=== PATIENT | female | born 1965 | race Caucasian/White ===

== ENCOUNTER 2018-05-25 10:21 | Emergency (ER) | payer OTHER ==
[~2018-05-25 10:21] MED LIST: AZIT-18 PO; BLOOD PRESSURE PO; CLON-327 PO; EST3 PO; GUAI480S48 PO; HYDR30CR10 TP; IBU800 PO; IPRA3AMP10 IH; KET10 PO; LOR05 PO; LORA-1455 PO; NO CURRENT MEDS; NO ROUTINE MEDS; PER PO; PRE20 PO; PRED-1 PO; PRED20TA6 PO; PROP80TA25 PO; SERT-173 PO; SERT25TA87 PO; [UNRECOGNIZED DRUG - OTHER]
[2018-05-25] MEDS ORDERED: NS(*) 0.9% 1000 ML BAG 1,000 ML IV ONE (10:34)
[2018-05-25] MEDS ORDERED: ONDANSETRON 4 MG/2 ML VIAL IVP ONE (10:35)
--- NOTE | 2018-05-25 10:50 | ER Report ---
History and Physical Time Seen By MD: 10:30 Hx. of Stated Complaint: Right upper quadrant abdominal pain and black stools. HPI/ROS CHIEF COMPLAINT: Abdominal pain HISTORY OF PRESENT ILLNESS: 52-year-old female comes emergency Department with 12 to 24-hour acute right upper quadrant abdominal pain and discomfort. Patient describes a sharp stabbing localized upper quadrant no loosening relieving factors comes and goes and is not associated with fluids and eat prior to patient does not have a gallbladder patient admits to 4-6 beers a day of alcohol consumption daily for many many years patient has mild nausea without actual vomiting and several episodes of loose stool patient denies any chest pain shortness of breath fever chills or additional complaints noted REVIEW OF SYSTEMS: Respiratory: No cough, no dyspnea. Cardiovascular: No chest pain, no palpitations. Gastrointestinal: Nausea without vomiting abdominal pain Musculoskeletal: No back pain. Remainder of the 14 system rev: Yes Allergies: Coded Allergies: No Known Drug Allergies (Verified , 05/25/18) Home Meds Active Scripts Hydrocortisone 2.5 % 30 GM CREAM (Hydrocortisone 2.5 % 30 GM CREAM) 2.5 % Cream.appl, 1 SOPHY TP BID for 30 Days, #1 TUBE 0 Refills Prov:MARY LINDSEY NPC 05/12/18 Clonidine Hcl (CLONIDINE HCL) 0.1 Mg Tablet, 0.1 MG PO BID PRN for prn, #8 TAB Take one tablet bid as needed for bp of 155/95. Prov:BRANDON CHEN [employer] 08/06/17 Reported Medications Propranolol Hcl (PROPRANOLOL HCL) 80 Mg Tablet, 80 MG PO QDAY 08/06/17 Estrogens Conjugated (PREMARIN) 0.3 Mg Tab, 0.3 MG PO QDAY, TAB 07/18/15 Sertraline Hcl (ZOLOFT) 100 Mg Tablet, 1 TAB PO QDAY, TAB 07/18/15 Ibuprofen (Motrin) 800 Mg Tab, 800 MG PO Q8H PRN for HEADACHES, #30 0 Refills take every 8 hours 07/02/11 Reviewed Nurses Notes: Yes Old Medical Records Reviewed: Yes Hx Smoking: Yes Smoking Status: Former Smoker Hx Substance Use Disorder: No Hx Alcohol Use: Yes (OCC) Constitutional Vital Sign - Last 24 Hours 05/25/18 10:27 Temp 98.2 Pulse 62 Resp 22 B/P (MAP) 190/89 Pulse Ox 92 Physical Exam General Appearance: The patient is alert, has no immediate need for airway protection and no current signs of toxicity. [ ] Eyes: Pupils equal and round no injection. Respiratory: Chest is non tender, lungs are clear to auscultation. Cardiac: regular rate and rhythm [ ] Gastrointestinal: Abdomen tenderness to right upper quadrant and epigastrium no left lower right lower no rebound guarding or masses and bowel sounds Musculoskeletal: Neck: Neck is supple and non tender. Extremities have full range of motion and are non tender. Skin: No rashes or lesions. [ ] DIFFERENTIAL DIAGNOSIS: After history and physical exam differential diagnosis was considered for pancreatitis alcoholic pancreatitis colitis Medical Decision Making Data Points Result Diagram: 05/25/18 1045 05/25/18 1045 Laboratory Hematology Test 05/25/18 10:45 05/25/18 11:07 Red Blood Count 4.04 M/uL (4.17-5.56) Mean Corpuscular Volume 94.7 fL (80.0-96.0) Mean Corpuscular Hemoglobin 31.9 pg (26.0-33.0) Mean Corpuscular Hemoglobin Concent 33.6 g/dL (32.0-36.0) Red Cell Distribution Width 15.2 % (11.5-14.5) Mean Platelet Volume 8.3 fL (7.2-11.1) Neutrophils (%) (Auto) 66.5 % (39.4-72.5) Lymphocytes (%) (Auto) 19.9 % (17.6-49.6) Monocytes (%) (Auto) 9.5 % (4.1-12.4) Eosinophils (%) (Auto) 3.0 % (0.4-6.7) Basophils (%) (Auto) 1.1 % (0.3-1.4) Nucleated RBC Relative Count (auto) 0.1 /100WBC Neutrophils # (Auto) 3.0 K/uL (2.0-7.4) Lymphocytes # (Auto) 0.9 K/uL (1.3-3.6) Monocytes # (Auto) 0.4 K/uL (0.3-1.0) Eosinophils # (Auto) 0.1 K/uL (0.0-0.5) Basophils # (Auto) 0.1 K/uL (0.0-0.1) Nucleated RBC Absolute Count (auto) 0.00 K/uL Prothrombin Time 12.6 seconds (12.0-14.4) Prothromb Time International Ratio 0.94 Activated Partial Thromboplast Time 26 seconds (23-35) Sodium Level 139 mmol/L (137-145) Potassium Level 4.1 mmol/L (3.5-5.0) Chloride Level 101 mmol/L (98-107) Carbon Dioxide Level 30 mmol/L (22-31) Blood Urea Nitrogen 14 mg/dl (7-18) Creatinine 0.90 mg/dl (0.52-1.04) Glomerular Filtration Rate Calc > 60.0 Random Glucose 106 mg/dl (75-110) Calcium Level 8.8 mg/dl (8.4-10.2) Total Bilirubin 0.7 mg/dl (0.2-1.3) Aspartate Amino Transf (AST/SGOT) 26 U/L (0-35) Alanine Aminotransferase (ALT/SGPT) 34 U/L (0-56) Alkaline Phosphatase 73 U/L (0-126) Total Protein 7.1 g/dl (6.3-8.2) Albumin 4.0 g/dl (3.5-5.0) Lipase 90 U/L (23-300) Serum Alcohol < 10 mg/dl Urine Color Yellow Urine Clarity Clear Urine pH 6.0 pH (4.8-9.5) Urine Specific [place] 1.005 Urine Protein Negative mg/dL (NEGATIVE) Urine Glucose (UA) Negative mg/dL (NEGATIVE) Urine Ketones Negative mg/dL (NEGATIVE) Urine Blood Negative (NEGATIVE) Urine Nitrite Negative (NEGATIVE) Urine Bilirubin Negative (NEGATIVE) Urine Urobilinogen Negative mg/dL (0.2-1.9) Urine Leukocyte Esterase Negative (NEGATIVE) Urine RBC None /HPF (0-2/HPF) Urine WBC 1 /HPF (0-5/HPF) Urine Squamous Epithelial Cells Moderate /LPF (</=FEW) Urine Bacteria Few /HPF (NONE-FEW) Urine Mucus Few /HPF (NONE-FEW) Chemistry Test 05/25/18 10:45 05/25/18 11:07 White Blood Count 4.6 k/uL (4.5-11.0) Red Blood Count 4.04 M/uL (4.17-5.56) Hemoglobin 12.9 g/dL (12.0-16.0) Hematocrit 38.2 % (34.0-47.0) Mean Corpuscular Volume 94.7 fL (80.0-96.0) Mean Corpuscular Hemoglobin 31.9 pg (26.0-33.0) Mean Corpuscular Hemoglobin Concent 33.6 g/dL (32.0-36.0) Red Cell Distribution Width 15.2 % (11.5-14.5) Platelet Count 120 K/uL (150-450) Mean Platelet Volume 8.3 fL (7.2-11.1) Neutrophils (%) (Auto) 66.5 % (39.4-72.5) Lymphocytes (%) (Auto) 19.9 % (17.6-49.6) Monocytes (%) (Auto) 9.5 % (4.1-12.4) Eosinophils (%) (Auto) 3.0 % (0.4-6.7) Basophils (%) (Auto) 1.1 % (0.3-1.4) Nucleated RBC Relative Count (auto) 0.1 /100WBC Neutrophils # (Auto) 3.0 K/uL (2.0-7.4) Lymphocytes # (Auto) 0.9 K/uL (1.3-3.6) Monocytes # (Auto) 0.4 K/uL (0.3-1.0) Eosinophils # (Auto) 0.1 K/uL (0.0-0.5) Basophils # (Auto) 0.1 K/uL (0.0-0.1) Nucleated RBC Absolute Count (auto) 0.00 K/uL Prothrombin Time 12.6 seconds (12.0-14.4) Prothromb Time International Ratio 0.94 Activated Partial Thromboplast Time 26 seconds (23-35) Glomerular Filtration Rate Calc > 60.0 Calcium Level 8.8 mg/dl (8.4-10.2) Total Bilirubin 0.7 mg/dl (0.2-1.3) Aspartate Amino Transf (AST/SGOT) 26 U/L (0-35) Alanine Aminotransferase (ALT/SGPT) 34 U/L (0-56) Alkaline Phosphatase 73 U/L (0-126) Total Protein 7.1 g/dl (6.3-8.2) Albumin 4.0 g/dl (3.5-5.0) Lipase 90 U/L (23-300) Serum Alcohol < 10 mg/dl Urine Color Yellow Urine Clarity Clear Urine pH 6.0 pH (4.8-9.5) Urine Specific [place] 1.005 Urine Protein Negative mg/dL (NEGATIVE) Urine Glucose (UA) Negative mg/dL (NEGATIVE) Urine Ketones Negative mg/dL (NEGATIVE) Urine Blood Negative (NEGATIVE) Urine Nitrite Negative (NEGATIVE) Urine Bilirubin Negative (NEGATIVE) Urine Urobilinogen Negative mg/dL (0.2-1.9) Urine Leukocyte Esterase Negative (NEGATIVE) Urine RBC None /HPF (0-2/HPF) Urine WBC 1 /HPF (0-5/HPF) Urine Squamous Epithelial Cells Moderate /LPF (</=FEW) Urine Bacteria Few /HPF (NONE-FEW) Urine Mucus Few /HPF (NONE-FEW) Coagulation Test 05/25/18 10:45 Prothrombin Time 12.6 seconds Prothromb Time International Ratio 0.94 Activated Partial Thromboplast Time 26 seconds Toxicology Test 05/25/18 10:45 Serum Alcohol < 10 mg/dl Urinalysis Test 05/25/18 11:07 Urine Color Yellow Urine Clarity Clear Urine pH 6.0 pH (4.8-9.5) Urine Specific [place] 1.005 Urine Protein Negative mg/dL (NEGATIVE) Urine Glucose (UA) Negative mg/dL (NEGATIVE) Urine Ketones Negative mg/dL (NEGATIVE) Urine Blood Negative (NEGATIVE) Urine Nitrite Negative (NEGATIVE) Urine Bilirubin Negative (NEGATIVE) Urine Urobilinogen Negative mg/dL (0.2-1.9) Urine Leukocyte Esterase Negative (NEGATIVE) Urine RBC None /HPF (0-2/HPF) Urine WBC 1 /HPF (0-5/HPF) Urine Squamous Epithelial Cells Moderate /LPF (</=FEW) Urine Bacteria Few /HPF (NONE-FEW) Urine Mucus Few /HPF (NONE-FEW) ED Course/Re-evaluation ED Course ED clinical course medical decision making this is a 52-year-old female upper quadrant pain started her gallbladder mild epigastric discomfort concerning for alcoholic pancreatitis versus colitis CT scan was performed normal lipase CT scan shows nothing focal or acute she did describe at the end of the encounter is some darkened stool rectal examination with gastric occult was performed results pending however the showed no darkened stool patient be discharged viral enteritis and follow up with primary care Decision to Disposition Date: May 25, 2018 Decision to Disposition Time: 13:29 Depart Departure Latest Vital Signs Vital Signs Date Time Temp Pulse Resp B/P (MAP) Pulse Ox O2 Delivery O2 Flow Rate FiO2 05/25/18 10:27 98.2 62 22 190/89 92 Impression: Primary Impression: Enteritis Condition: Improved Disposition: HOME OR SELF-CARE Referrals: BIN DUPONT (PCP) 5 Days Patient Instructions: Enteritis (DC) CHEO IGNACIO MD May 25, 2018 10:50
[2018-05-25 10:53] LABS: PLATELET COUNT, AUTOMATED 120 K/uL (150-450)
[2018-05-25 11:01] LABS: INR 0.94
[2018-05-25] MEDS ORDERED: IOPAMIDOL 76% 75 ML INFUS BTL 75 ML ONE (11:06)
--- NOTE | 2018-05-25 11:41 | RADIOLOGY IMAGING REPORT ---
FACILITY: [facility] - [place] PATIENT NAME: Viola Covarrubias : 1965 MR: [id number] V: [id number] EXAM DATE: ORDERING PHYSICIAN: CHEO IGNACIO TECHNOLOGIST: Location: [facility] [place] Patient: Viola Covarrubias : 1965 Visit/Account:[id number] Date of Sevice: 05/25/2018 Exam type: CHEST PA AND LAT History: pain Comparison: August 06, 2017. Findings: The lungs are free of acute effusions, infiltrates or edema. There is no evidence of a pneumothorax or pneumomediastinum. The cardiac silhouette is normal in size. The trachea is midline. IMPRESSION: 1. No acute cardiopulmonary process is seen Report Dictated By: Cat Sena MD at 05/25/2018 11:36 AM Report E-Signed By: Cat Sena MD at 05/25/2018 11:37 AM WSN:[id number]
--- NOTE | 2018-05-25 12:25 | RADIOLOGY IMAGING REPORT ---
FACILITY: [facility] - [place] PATIENT NAME: Viola Covarrubias : 1965 MR: [id number] V: [id number] EXAM DATE: ORDERING PHYSICIAN: CHEO IGNACIO TECHNOLOGIST: Location: [facility] - [place] Patient: Viola Covarrubias : 1965 Visit/Account:[id number] Date of Sevice: 05/25/2018 ABDOMEN/PELVIS WITH CONTRAST HISTORY: Epigastric pain TECHNIQUE: CT abdomen and pelvis with intravenous contrast. Contiguous axial images of the abdomen and pelvis was performed from the lung bases to the symphysis pubis. One of the following dose optimization techniques was utilized in the performance of this exam: Autom ated exposure control; adjustment of the mA and/or kV according to the patient's size; or use of an i terative reconstruction technique. Specific details can be referenced in the facility's radiology C T exam operational policy. CONTRAST: 75 cc of Isovue-370 COMPARISON: CT scan 11/13/2013 FINDINGS: Visualized lung bases: 1 mm left for lobe micronodules noted image 9 and stable. 2 mm right lower lo be micronodule is noted image 9 as well and appears new. These nodules are likely benign. Hepatobiliary: Gallbladder is absent. Liver and bile ducts are otherwise unremarkable. Spleen: Negative. Adrenals: Negative. Kidneys/: Negative. Pancreas: Negative. GI: No evidence for bowel obstruction or focal inflammation. Small amount of free fluid is noted in the deep pelvis. Vessels/spaces/nodes: Mild atherosclerotic calcifications noted. Bones/soft tissues: Degenerative changes are noted L5-S1. IMPRESSION: 1. No acute pathology in the abdomen or pelvis. 2. Trace free fluid deep pelvis may be physiologic. No bowel obstruction or focal bowel inflammation. Report Dictated By: Pablito Daniels MD at 05/25/2018 12:08 PM Report E-Signed By: Pablito Daniels MD at 05/25/2018 12:21 PM WSN:[id number]
[2018-05-25 13:31] VITALS: BP 150/84
== END 2018-05-25 13:41 | disposition home or self-care (01) ==
LOC: ER 10:25
DX: K52.9 Noninfective gastroenteritis and colitis, unspecified (principal)
CPT/HCPCS: 36415; 71046; 74177; 80320; 81001; 82274; 83690; 85025; 85610; 85730; 96361; 96374; 99284; J2405; J7030; Q9967; 82040; 82247; 82310; 82374; 82435; 82565; 82947; 84075; 84132; 84155; 84295; 84450; 84460; 84520

== ENCOUNTER → 2019-03-30 | Outpatient (CLI) | payer OTHER ==
[~2019-03-30] MED LIST changes: +IOPAMIDOL 76% 100 ML INFUS BTL 100 ML ONE
--- NOTE | 2019-03-30 16:58 | RADIOLOGY IMAGING REPORT ---
FACILITY: [facility] - [place] PATIENT NAME: Viola Covarrubias : 1965 MR: [id number] V: [id number] EXAM DATE: ORDERING PHYSICIAN: BIN DUPONT TECHNOLOGIST: Location: [facility] - [place] Patient: Viola Covarrubias : 1965 Visit/Account:[id number] Date of Sevice: 03/30/2019 CT abdomen and pelvis with IV contrast Indication: Right lower abdominal and pelvic pain. Comparison: 05/25/2018.. Technique: Axial CT images were obtained through the abdomen and pelvis during injection of nonioni c iodinated intravenous contrast. Reformatted coronal and sagittal images were also obtained. One of the following dose optimization techniques was utilized in the performance of this exam: Autom ated exposure control; adjustment of the mA and/or kV according to the patient's size; or use of an i terative reconstruction technique. Specific details can be referenced in the facility's radiology C T exam operational policy. Contrast: 75 ml of Isovue-370 IV contrast. Findings: Lower lung bryant: Limited views lower lung field are unremarkable. Liver: No focal parenchymal abnormality of the liver. Biliary: Status post cholecystectomy. The biliary system is unremarkable. Pancreas: Normal appearance. Spleen: Normal appearance. Adrenal glands: Unremarkable. Kidneys / retroperitoneum: No evidence of nephrolithiasis or hydronephrosis. No focal normality. Bowel / peritoneum / mesenteries: Colon shows no focal normality. The appendix is normal. Small bowel shows no focal abnormality or obstruction. The stomach is unremarkable. No free air, free fluid, fluid collections or areas of inflammation. Small umbilical hernia containin g fat. Lymph node assessment: No pathologic adenopathy identified. Pelvic structures: Status post hysterectomy. The remaining pelvic structures visualized within nor mal limits. Vessels: No significant atherosclerotic calcifications seen throughout a nonaneurysmal abdominal aort a and branches. Musculoskeletal / Body wall: No acute or aggressive osseous abnormality. Degenerative changes spine m ainly at the L5-S1 level. IMPRESSION: 1. No acute intra-abdominal abnormality. The appendix is normal. Report Dictated By: Pablito Vazquez at 03/30/2019 4:43 PM Report E-Signed By: Pablito Vazquez at 03/30/2019 4:51 PM WSN:[id number]
== END ==
LOC: CT 15:41
PROVIDERS: ATTEND Nurse Practitioner Family
DX: R10.31 Right lower quadrant pain (principal); R11.0 Nausea; R50.9 Fever, unspecified
CPT/HCPCS: 36415; 74177; 82565; Q9967